=== PATIENT | female | born 1985 | race Caucasian/White ===

== ENCOUNTER 2019-05-05 09:50 | Inpatient (IN) | payer OTHER ==
[~2019-05-05] VITALS: Ht 162.6 cm; Wt 74.0 kg
[2019-05-05] MEDS ORDERED: IV 1/2 NORMAL SALINE 1,000 ML IV PRN (12:45)
[2019-05-05 13:02] VITALS: BP 117/83
[2019-05-05 13:36] LABS: BASO % 1 % (0-3); EOS # 0.1 x10^3/uL (0.0-0.7); EOS % 1 % (0-3); HEMATOCRIT 41.5 % (36.0-47.0); HEMOGLOBIN 13.5 g/dL (12.0-15.5); LYMPH # 0.4 x10^3/uL (1.0-4.8); LYMPH % 9 % (24-48); MEAN CORPUSCULAR HEMOGLOBIN 30 pg (25-35); MEAN CORPUSCULAR HGB CONC 32 g/dL (31-37); MEAN CORPUSCULAR VOLUME 93 fL (79-100); MONO # 0.4 x10^3/uL (0.0-1.1); MONO % 8 % (0-9); NEUT # 4.1 x10^3uL (1.8-7.7); NEUT % 81 % (31-73); PLATELET COUNT 261 x10^3/uL (140-400); RED BLOOD COUNT 4.48 x10^6/uL (3.50-5.40); RED CELL DISTRIBUTION WIDTH 13.9 % (11.5-14.5)
[2019-05-05 13:48] LABS: ALBUMIN 3.6 g/dL (3.4-5.0); ALBUMIN/GLOBULIN RATIO 1.1 (1.0-1.7); CREATININE 0.8 mg/dL (0.6-1.0); GFR 83.1; POTASSIUM 3.9 mmol/L (3.5-5.1); TOTAL BILIRUBIN 0.1 mg/dL (0.2-1.0); TOTAL PROTEIN 6.9 g/dL (6.4-8.2)
[2019-05-05 14:08] LABS: FECAL OB PT POSITIVE (NEG)
[2019-05-05] MEDS ORDERED: ACETAMINOPHEN 325 MG TABLET PO PRN (15:15)
[2019-05-05 15:22] VITALS: BP 109/80
--- NOTE | 2019-05-05 15:47 | RAD ---
CT of the abdomen and pelvis without contrast. 05/05/2019 1:32 PM Indication: Abdominal pain Comparison Study: None. Technique: Multidetector CT imaging of the abdomen pelvis is obtained without administration of contrast. Findings: Partially visualized lung bases demonstrate no acute abnormality. The liver, spleen, bilateral adrenal glands, gallbladder, and pancreas have a normal noncontrast enhanced appearance. The bilateral kidneys are grossly normal in appearance. There is no evidence of nephrolithiasis or obstructive uropathy. The ureters are normal in course and caliber. The bladder is grossly unremarkable. There is no significant free fluid or free air in the abdomen or pelvis. There is no evidence of bowel obstruction or or evidence of significant inflammatory change involving the bowel. The appendix is well visualized and normal in appearance. There is no acute osseous abnormality identified. Impression: No evidence of acute intra-abdominal abnormality CT DOSING PQRS STATEMENT: One or more of the following individualized dose reduction techniques were utilized for this examination: 1. Automated exposure control 2. Adjustment of the mA and/or kV according to patient size 3. Use of iterative reconstruction technique. Electronically signed by: Dm Woodruff MD (05/05/2019 3:44 PM) [place] [id number]
[2019-05-05] MEDS ORDERED: LEVO125T PO (16:47)
[2019-05-05] MEDS ORDERED: ASPI81TA59 PO (16:47)
[2019-05-05] MEDS ORDERED: ATOR10TA PO (16:47)
[2019-05-05] MEDS ORDERED: FLUO40CA9 PO (16:47)
[2019-05-05] MEDS: VANCOMYCIN 125 MG/2.5 ML ORAL SOLUTION. PO SCH ×2 (17:08→20:47)
--- NOTE | 2019-05-05 18:05 | NUR ---
patient arrived and ambulated to the room 121 at 10:25 accompanied sefl. Pt c/o diarrhea x48 hours and bilateral flank pain. c-diff stool spacemen obtained. contact isolation initiated.
[2019-05-05] MEDS ORDERED: ZOLPIDEM 5 MG TABLET. PO PRN (18:30)
[2019-05-05] MEDS ORDERED: ACETAMINOPHEN 500 MG TABLET PO PRN (18:30)
[2019-05-05 19:42] VITALS: BP_SYST 101; BP_SYST 110; BP_DIAS 71
[2019-05-05] MEDS ORDERED: FLUoxetine HCL 20 MG CAPSULE PO SCH (21:00)
[2019-05-05 22:40] VITALS: BP 99/74
--- NOTE | 2019-05-05 22:45 | NUR ---
PT calm and cooperative with cares, assessment and medication administration. PT stated she took her Prozac at HS. Prozac rescheduled to HS. PT afterwards said that all of her medications were taken at night. When asked if we could leave Synthroid until the AM, PT agreed. PT complained that she was having trouble sleeping due to IV fluids. Requested to be taken off fluids. called. Fluids DC'd. PT also made aware of Ambien on APR. Med given. Will continue to monitor.
[2019-05-06] MEDS ORDERED: LEVOTHYROXINE 125 MCG TABLET PO SCH (06:00)
[2019-05-06] MEDS: VANCOMYCIN 125 MG/2.5 ML ORAL SOLUTION. PO SCH (09:00)
--- NOTE | 2019-05-06 09:40 | NUR ---
Patient is D/C home with self care. Pt is given instructions for follow up and prescription for Vancomycin AZ 125mg QID. IV discontinued and tele monitor removed. Patient ambulated off unit accompanied by self.
--- NOTE | 2019-05-06 22:16 | DS ---
DATE OF DISCHARGE: 05/06/2019 HOSPITAL COURSE: The patient came in with severe nausea, vomiting and severe diarrhea to the point where she was dehydrated. The patient was admitted to the hospital for further evaluation and treatment because she had approximately 10-15 stools a day, explosive in nature, blood in the stool. The patient was admitted to the hospital for further followup and hydration. The patient was admitted. Her C. difficile toxin report has not been returned as yet to her chart. There was some malfunction in the computer system this morning and so that is down, but in any case, the last report was not done yet, but in any case, she did respond very nicely to the oral vancomycin and some fluids and she felt much better this morning, so she was discharged home. She will follow up either primary care physician or here obviously in followup. She said she had had any BM since the day before, that was, yesterday and so she was discharged home and she will be followed up accordingly as noted for the results of that stool test as well as the blood in the stool, which may indicate that she may need some type of a scope done as well; although, her CAT scan had been performed on her abdomen because of this. She did have abdominal pain as well and was quite uncomfortable with that. The patient's CT abdomen and pelvis was basically grossly normal. IMPRESSION: Dehydration, severe diarrhea, possible C. difficile, abdominal pain. The patient will be discharged home. Continue on oral medications including the vancomycin 125 mg p.o. 4 times a day for at least 10 days. Have her follow up accordingly. She was told that the C. diff has a tendency to come back 50% and also to watch her family using same bathroom and all that to minimize any possible dissemination of the C. difficile. JHON OLIVEIRA MD DR: BONG/kamala JOB#: [id number] / [id number]
[2019-05-07] MEDS ORDERED: MELA10CA PO (15:28)
== END 2019-05-06 09:40 | disposition home or self-care (01) | DRG 372 ==
LOC: 1 SOUTH 09:50
PROVIDERS: ADMIT Family Medicine; ATTEND Family Medicine
DX: A04.72 Enterocolitis due to Clostridium difficile, not specified as recurrent (principal); N39.0 Urinary tract infection, site not specified; E86.0 Dehydration; K21.9 Gastro-esophageal reflux disease without esophagitis; Z79.899 Other long term (current) drug therapy
CPT/HCPCS: 36415; 74176; 80053; 82274; 85025; 87045; 87086; 87177; 87209; 87493; J7030

== ENCOUNTER 2019-05-07 12:40 | Inpatient (IN) | payer OTHER ==
[~2019-05-07] VITALS: Ht 162.6 cm; Wt 75.0 kg
[~2019-05-07 12:40] MED LIST: ASPI81TA59 PO; ATOR10TA PO; FLUO40CA9 PO; LEVO125T PO
[2019-05-07 13:30] VITALS: BP 117/81
[2019-05-07] MEDS: IV NORMAL SALINE 1,000ML 1,000 ML IV SCH (14:29)
[2019-05-07] MEDS ORDERED: HYDROcodone/APAP 5/325MG 1 TAB TABLET PO PRN (14:30)
[2019-05-07] MEDS ORDERED: ACETAMINOPHEN 325 MG TABLET PO PRN (14:30)
[2019-05-07] MEDS ORDERED: ONDANSETRON PF 4 MG/2 ML VIAL. IVP PRN (14:30)
[2019-05-07] MEDS ORDERED: KETOROLAC 30 MG/ML VIAL. IV PRN (14:30)
[2019-05-07 14:57] LABS: BASO % 0 % (0-3); EOS # 0.1 x10^3/uL (0.0-0.7); EOS % 2 % (0-3); HEMATOCRIT 38.1 % (36.0-47.0); HEMOGLOBIN 12.8 g/dL (12.0-15.5); LYMPH # 0.9 x10^3/uL (1.0-4.8); LYMPH % 18 % (24-48); MEAN CORPUSCULAR HEMOGLOBIN 30 pg (25-35); MEAN CORPUSCULAR HGB CONC 34 g/dL (31-37); MEAN CORPUSCULAR VOLUME 90 fL (79-100); MONO # 0.5 x10^3/uL (0.0-1.1); MONO % 10 % (0-9); NEUT # 3.6 x10^3uL (1.8-7.7); NEUT % 70 % (31-73); PLATELET COUNT 298 x10^3/uL (140-400); RED BLOOD COUNT 4.24 x10^6/uL (3.50-5.40); RED CELL DISTRIBUTION WIDTH 14.2 % (11.5-14.5); WHITE BLOOD COUNT 5.1 x10^3/uL (4.0-11.0)
--- NOTE | 2019-05-07 15:04 | NUR ---
PT admitted per Direct Dr Echavarria. PT dc yesterday and is feeling bad again. PT is able to verbalize understanding of poc and orientation to unit. PT reports she is having 10/10 back pain. Will continue to monitor. Chinedu ALEXIS
[2019-05-07] MEDS ORDERED: MELA10CA PO (15:28)
[2019-05-07 15:36] LABS: ALBUMIN 3.1 g/dL (3.4-5.0); ALBUMIN/GLOBULIN RATIO 1.1 (1.0-1.7); CALCIUM 6.9 mg/dL (8.5-10.1); CREATININE 0.6 mg/dL (0.6-1.0); GFR 115.9; POTASSIUM 3.3 mmol/L (3.5-5.1); TOTAL BILIRUBIN 0.2 mg/dL (0.2-1.0); TOTAL PROTEIN 5.8 g/dL (6.4-8.2)
[2019-05-07 15:53] LABS: U PREG PATIENT NEGATIVE (NEG)
[2019-05-07 15:55] VITALS: BP 106/70
[2019-05-07 15:56] LABS: BACTERIA,URINE 0 /HPF (0-FEW); BILIRUBIN,URINE NEG (NEG); CLARITY,URINE CLEAR; COLOR,URINE YELLOW; GLUCOSE,URINE NEG (NEG); NITRITE,URINE NEG (NEG); RBC,URINE OCC /HPF (0-2); SQUAMOUS EPITHELIAL CELL,UR FEW /LPF; UROBILINOGEN,URINE 0.2 mg/dL (0.2 mg/dL); WBC,URINE RARE /HPF (0-4)
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
[2019-05-07] MEDS ORDERED: POTASSIUM CHLORIDE 20 MEQ TABLET.ER. PO ONE (17:30)
[2019-05-07] MEDS ORDERED: MAGNESIUM SULFATE 2GM 50 ML IV ONE (17:30)
--- NOTE | 2019-05-07 17:49 | RAD ---
CT lumbar spine without contrast History: Back pain Axial helical images of the lumbar spine were obtained without contrast. Axial, coronal and sagittal reconstruction was performed. Findings: The vertebral bodies are aligned. There is no loss of vertebral body stature. Evaluation of the central canal is limited without contrast. There is bilateral spondylolysis at L5-S1. There is a broad-based posterior disc bulge L4-5 eccentric to the left without significant stenosis. This is causing crowding of the lateral recess on the left. There is moderate narrowing of multiple neuroforamen below the level of the exiting nerve roots. Impression: 1. Large posterior disc bulge eccentric to left L4-L5 could cause compression of the L5 nerve root before it is neuroforamen. 2. Bilateral spondylolysis at L5-S1. End impression PQRS Compliance Statement: One or more of the following individualized dose reduction techniques were utilized for this examination: 1. Automated exposure control 2. Adjustment of the mA and/or kV according to patient size 3. Use of iterative reconstruction technique Electronically signed by: Jelani Perez III, MD (05/07/2019 5:46 PM) [id number]
[2019-05-07] MEDS: HYDROcodone/APAP 5/325MG 1 TAB TABLET PO PRN (18:33)
[2019-05-07] MEDS ORDERED: MELATONIN 3 MG TABLET PO PRN (18:45)
[2019-05-07 19:20] VITALS: BP 147/79
[2019-05-07] MEDS ORDERED: ASPIRIN 81 MG TAB.CHEW PO SCH (21:00)
[2019-05-07] MEDS ORDERED: ATORVASTATIN CALCIUM 10 MG TABLET. PO SCH (21:00)
[2019-05-07 23:01] VITALS: BP 114/76
[2019-05-08] MEDS: IV NORMAL SALINE 1,000ML 1,000 ML IV SCH (02:00)
[2019-05-08] MEDS: HYDROcodone/APAP 5/325MG 1 TAB TABLET PO PRN ×2 (02:00→08:29)
[2019-05-08] MEDS ORDERED: LEVOTHYROXINE 125 MCG TABLET PO SCH (06:00)
[2019-05-08 06:11] VITALS: BP_SYST 113; BP_SYST 88; BP_DIAS 18; BP_DIAS 76
[2019-05-08 06:32] LABS: BASO % 1 % (0-3); EOS # 0.2 x10^3/uL (0.0-0.7); EOS % 5 % (0-3); HEMATOCRIT 36.6 % (36.0-47.0); LYMPH # 1.3 x10^3/uL (1.0-4.8); LYMPH % 27 % (24-48); MEAN CORPUSCULAR HEMOGLOBIN 30 pg (25-35); MEAN CORPUSCULAR HGB CONC 33 g/dL (31-37); MEAN CORPUSCULAR VOLUME 91 fL (79-100); MONO # 0.4 x10^3/uL (0.0-1.1); MONO % 10 % (0-9); NEUT # 2.7 x10^3uL (1.8-7.7); NEUT % 58 % (31-73); PLATELET COUNT 266 x10^3/uL (140-400); RED BLOOD COUNT 4.01 x10^6/uL (3.50-5.40); WHITE BLOOD COUNT 4.6 x10^3/uL (4.0-11.0)
[2019-05-08 06:44] LABS: ALBUMIN 2.9 g/dL (3.4-5.0); ALBUMIN/GLOBULIN RATIO 1.1 (1.0-1.7); CALCIUM 6.6 mg/dL (8.5-10.1); CREATININE 0.6 mg/dL (0.6-1.0); GFR 115.9; POTASSIUM 3.8 mmol/L (3.5-5.1); TOTAL BILIRUBIN 0.1 mg/dL (0.2-1.0); TOTAL PROTEIN 5.6 g/dL (6.4-8.2)
[2019-05-08] MEDS ORDERED: ACET-704 PO (07:48)
[2019-05-08] MEDS ORDERED: NAPR500T8 PO (07:48)
[2019-05-08 08:28] LABS: SEDIMENTATION RATE 8 (0-25)
[2019-05-08] MEDS ORDERED: FLUoxetine HCL 20 MG CAPSULE PO SCH (09:00)
[2019-05-08] MEDS ORDERED: ASPIRIN 81 MG TAB.CHEW PO SCH (09:00)
--- NOTE | 2019-05-08 09:46 | NUR ---
NSG NOTE; DISCHARGE VERBAL AND WRITTEN DISCHARGE INSTRUCTIONS GIVEN TO PT WITH VERBAL UNDERSTANDING WRITTEN RX X2 GIVEN TO PT DISCHARGED TO HOME AT 0900 VIA AMB ACCOMP BY
[2019-05-09 07:09] LABS: CALCIUM PTH 7.5 mg/dL (8.7-10.2); CREATININE PTH 0.59 mg/dL (0.57-1.00); PTH INTACT 59 pg/mL (15-65)
== END 2019-05-08 09:00 | disposition home or self-care (01) | DRG 552 ==
LOC: 1 SOUTH 14:07
PROVIDERS: ADMIT Family Medicine; ATTEND Family Medicine
DX: M51.26 Other intervertebral disc displacement, lumbar region (principal); E44.0 Moderate protein-calorie malnutrition; E89.0 Postprocedural hypothyroidism; Z83.3 Family history of diabetes mellitus; Z82.49 Family history of ischemic heart disease and other diseases of the circulatory system; Z68.28 Body mass index [BMI] 28.0-28.9, adult; Z98.890 Other specified postprocedural states
CPT/HCPCS: 36415; 72131; 80053; 81001; 81025; 82330; 83690; 83735; 83970; 84443; 85025; 85379; 85651; 86140; J1885; J3010; J3475; J7030